=== PATIENT | female | born 1940 | race Asian ===

== ENCOUNTER 2024-02-21 10:12 | Emergency (ER) | payer MEDICARE, MEDICAID ==
[~2024-02-21] VITALS: Ht 147.3 cm; Wt 50.3 kg
[2024-02-21] MEDS ORDERED: ACETAMINOPHEN 325 MG TABLET ONE (10:58)
[2024-02-21] MEDS: ACETAMINOPHEN 325 MG TABLET PO ONE (11:06)
[2024-02-21 11:37] VITALS: BP 134/73; TEMP 98.2; O2SAT 98
== END 2024-02-21 11:39 | disposition home or self-care (01) ==
LOC: ER 10:12
DX: S42.292A Other displaced fracture of upper end of left humerus, initial encounter for closed fracture (principal); W18.39XA Other fall on same level, initial encounter; Y93.89 Activity, other specified; Y92.89 Other specified places as the place of occurrence of the external cause; Y99.8 Other external cause status
CPT/HCPCS: 73020; A4606; A4663

== ENCOUNTER 2025-04-22 15:29 | Inpatient (IN) | payer BC, MEDICAID, MEDICARE ==
[~2025-04-22] VITALS: Ht 147.3 cm; Wt 51.3 kg
[2025-04-22] MEDS ORDERED: LOSA1TAB39 PO (15:44)
[2025-04-22] MEDS ORDERED: ASPI-1420 PO (15:44)
[2025-04-22] MEDS ORDERED: LEVO50TA8 PO (15:44)
[2025-04-22] MEDS ORDERED: FAMO20TA8 PO (15:44)
[2025-04-22] MEDS ORDERED: METO-357 PO (15:44)
[2025-04-22] MEDS ORDERED: ROSU40TA23 PO (15:44)
[2025-04-22] MEDS: IV NORMAL SALINE 500 ML BAG IV ONE (16:00)
[2025-04-22 16:15] LABS: PLATELET COUNT (AUTO) 207 K/uL (179-408); RED BLOOD CELL COUNT(AUTO) 4.57 MIL/uL (3.63-4.92); RED CELL DISTRIBUTION WIDTH 13.2 % (12.3-17.7); WHITE BLOOD COUNT (AUTO) 12.4 K/uL (3.8-11.8)
[2025-04-22 16:31] LABS: ASPARTATE AMINOTRANSFERASE 111 U/L (15-37); CREATININE 2.6 mg/dL (0.6-1.3); SODIUM SERUM 140 mmol/L (136-145); TOTAL PROTEIN, SERUM 9.1 g/dL (6.4-8.2); UREA NITROGEN, BLOOD 49 mg/dL (7-18)
[2025-04-22 16:34] LABS: LACTIC ACID 2.1 mmol/L (0.4-2.0)
[2025-04-22] MEDS ORDERED: CHOL2000 PO (17:24)
[2025-04-22] MEDS ORDERED: TRIA80CR2 TP (17:25)
[2025-04-22] MEDS ORDERED: DIAZ2TAB3 PO (17:26)
[2025-04-22] MEDS ORDERED: MAGNESIUM SULFATE/D5W 200 ML ONE (18:02)
[2025-04-22] MEDS ORDERED: POTASSIUM BICARBONATE/CIT AC 25 MEQ TABLET.EFF ONE (18:02)
[2025-04-22] MEDS: MAGNESIUM SULFATE/D5W 100 ML IV SCH (18:04)
[2025-04-22] MEDS: POTASSIUM BICARBONATE/CIT AC 25 MEQ TABLET.EFF PO ONE (18:04)
[2025-04-22] MEDS ORDERED: POTASSIUM CHLORIDE 200 ML ONE (18:48)
[2025-04-22] MEDS: POTASSIUM CHLORIDE 50 ML IV SCH (18:49)
[2025-04-22 19:15] LABS: *BILIRUBIN,URIN NEGATIVE (NEGATIVE); *BLOOD, URINE 3+ (NEGATIVE); *COLOR,URINE YELLOW (YELLOW); *KETONES,URINE TRACE (NEGATIVE); *OCCULT BLOOD STOOL NEGATIVE (NEGATIVE); *PROTEIN,URINE 3+ (NEGATIVE); *UROBILINOGEN,URINE 0.2 E.U./dl (NORMAL); LEUKOCYTE ESTERASE ,URINE NEGATIVE (NEGATIVE); NITRITE, URINE NEGATIVE (NEGATIVE); UGLUCOSE NEGATIVE (NEGATIVE)
[2025-04-22 19:16] LABS: *CLARITY,URINE HAZY (CLEAR)
[2025-04-22 19:29] LABS: SQUAMOUS EPITHELIAL CELL,UR MODERATE /HPF (NONE SEEN)
[2025-04-22] MEDS ORDERED: ONDANSETRON 4 MG/2 ML VIAL ONE (19:45)
[2025-04-22] MEDS: ONDANSETRON 4 MG/2 ML VIAL IV ONE (19:49)
[2025-04-22 20:00] VITALS: BP 122/60
[2025-04-22] MEDS ORDERED: DIAZEPAM 2 MG TABLET PO PRN (21:45)
[2025-04-22] MEDS ORDERED: ENOXAPARIN SODIUM 40 MG/0.4 ML DISP.SYRIN SQ SCH (21:45)
[2025-04-22] MEDS ORDERED: TRIAMCINOLONE ACET 0.025% CREA 15 GM TUBE TP PRN (21:45)
[2025-04-22] MEDS ORDERED: ACETAMINOPHEN 325 MG TABLET PO PRN (21:45)
[2025-04-22] MEDS ORDERED: FAMOTIDINE 20 MG TABLET PO PRN ×2 (21:45→22:45)
[2025-04-22] MEDS ORDERED: ONDANSETRON 4 MG/2 ML VIAL IV PRN (21:45)
[2025-04-22 22:01] VITALS: BP 117/56; TEMP 98.9; O2SAT 96
[2025-04-22] MEDS: ATORVASTATIN 20 MG TABLET PO SCH (22:23)
[2025-04-22] MEDS: METOPROLOL SUCCINATE XL 50 MG TAB.SR.24H PO SCH (22:24)
[2025-04-22] MEDS: ENOXAPARIN SODIUM 30 MG/0.3 ML DISP.SYRIN SQ SCH (23:08)
[2025-04-23] VITALS (7 sets, daily range): BP systolic 103–138; BP diastolic 41–58; TEMP 97.4–98.8; O2SAT 92–99
[2025-04-23] MEDS: IV NS 1000 ML 1,000 ML IV PRN (00:58)
[2025-04-23] MEDS ORDERED: TRIAMCINOLONE ACET 0.025% CREA 15 GM TUBE TP PRN (06:15)
[2025-04-23] MEDS ORDERED: FAMOTIDINE 20 MG TABLET PO PRN (06:15)
[2025-04-23 06:46] LABS: PLATELET COUNT (AUTO) 190 K/uL (179-408); RED BLOOD CELL COUNT(AUTO) 3.99 MIL/uL (3.63-4.92); RED CELL DISTRIBUTION WIDTH 13.4 % (12.3-17.7); WHITE BLOOD COUNT (AUTO) 7.7 K/uL (3.8-11.8)
[2025-04-23] MEDS: LEVOTHYROXINE SODIUM 50 MCG TABLET PO SCH (07:26)
[2025-04-23 07:33] LABS: CREATININE 2.1 mg/dL (0.6-1.3); SODIUM SERUM 141 mmol/L (136-145); UREA NITROGEN, BLOOD 42 mg/dL (7-18)
[2025-04-23] MEDS: CHOLECALCIFEROL 1,000 UNIT TABLET PO SCH (08:33)
[2025-04-23] MEDS: ASPIRIN EC 81 MG TABLET.DR PO SCH (08:33)
[2025-04-23] MEDS ORDERED: POTASSIUM CHLORIDE 20 MEQ POWDER PACKET GT ONE (09:00)
[2025-04-23] MEDS: POTASSIUM CHLORIDE 20 MEQ TAB.PRT.SR PO ONE (09:12)
[2025-04-23] MEDS: POTASSIUM CHLORIDE 50 ML IV SCH (09:52)
[2025-04-23] MEDS: POTASSIUM CHLORIDE 10 MEQ, LIDOCAINE-MPF 1% 1 ML in IV DEXTROSE 5% 100 ML IV SCH (11:45)
[2025-04-24] VITALS (7 sets, daily range): BP systolic 109–171; BP diastolic 49–55; TEMP 97.8–98.6; O2SAT 97–100
[2025-04-24 07:12] LABS: PLATELET COUNT (AUTO) 173 K/uL (179-408); RED BLOOD CELL COUNT(AUTO) 3.79 MIL/uL (3.63-4.92); RED CELL DISTRIBUTION WIDTH 13.4 % (12.3-17.7); WHITE BLOOD COUNT (AUTO) 6.3 K/uL (3.8-11.8)
[2025-04-24 07:29] LABS: CREATININE 1.8 mg/dL (0.6-1.3); SODIUM SERUM 144 mmol/L (136-145); UREA NITROGEN, BLOOD 30 mg/dL (7-18)
[2025-04-24] MEDS: ENSURE ENLIVE (VAN) 240 ML LIQUID PO SCH (09:33)
[2025-04-24] MEDS: POTASSIUM CHLORIDE 10 MEQ TAB.PRT.SR PO ONE ×2 (09:45→13:37)
[2025-04-24] MEDS: POTASSIUM CHLORIDE 20 MEQ POWDER PACKET PO ONE (12:16)
[2025-04-24] MEDS: NEUTRA PHOS PACKET PO ONE (16:49)
[2025-04-25 06:49] LABS: PLATELET COUNT (AUTO) 167 K/uL (179-408); RED BLOOD CELL COUNT(AUTO) 3.64 MIL/uL (3.63-4.92); RED CELL DISTRIBUTION WIDTH 13.3 % (12.3-17.7); WHITE BLOOD COUNT (AUTO) 5.9 K/uL (3.8-11.8)
[2025-04-25 07:04] VITALS: BP 154/58; TEMP 98.6; O2SAT 98
[2025-04-25 07:12] LABS: CREATININE 1.3 mg/dL (0.6-1.3); SODIUM SERUM 144 mmol/L (136-145); UREA NITROGEN, BLOOD 22 mg/dL (7-18)
[2025-04-25] MEDS ORDERED: LEVO500T90 PO (09:42)
[2025-04-25] MEDS ORDERED: POTASSIUM CHLORIDE 50 ML IV SCH (10:00)
[2025-04-25] MEDS: POTASSIUM CHLORIDE 20 MEQ POWDER PACKET GT ONE (10:02)
[2025-04-25] MEDS: MAGNESIUM SULFATE/D5W 100 ML IV SCH (10:14)
[2025-04-25 11:40] VITALS: BP 155/59; TEMP 98; O2SAT 99
[2025-04-25] MEDS: POTASSIUM CHLORIDE 10 MEQ, LIDOCAINE-MPF 1% 1 ML in IV DEXTROSE 5% 100 ML IV SCH (13:27)
[2025-04-25 15:59] VITALS: BP 149/63; TEMP 98.2; O2SAT 100
== END 2025-04-25 20:30 | disposition home or self-care (01) | DRG 640 ==
LOC: ER 15:29 → TELE3 19:46 → MEDSURG3 04-25 14:06
PROVIDERS: ADMIT Nurse Practitioner Acute Care; ATTEND Nurse Practitioner Acute Care
DX: E86.0 Dehydration (principal); I21.A1 Myocardial infarction type 2; N17.0 Acute kidney failure with tubular necrosis; N39.0 Urinary tract infection, site not specified; E87.6 Hypokalemia; S00.03XA Contusion of scalp, initial encounter; S30.0XXA Contusion of lower back and pelvis, initial encounter; W18.39XA Other fall on same level, initial encounter; Y93.89 Activity, other specified; Y92.511 Restaurant or cafe as the place of occurrence of the external cause; F41.9 Anxiety disorder, unspecified; E03.9 Hypothyroidism, unspecified; E78.5 Hyperlipidemia, unspecified; K21.9 Gastro-esophageal reflux disease without esophagitis; T50.2X5A Adverse effect of carbonic-anhydrase inhibitors, benzothiadiazides and other diuretics, initial encounter; Y92.039 Unspecified place in apartment as the place of occurrence of the external cause; E86.1 Hypovolemia; E87.3 Alkalosis; I10 Essential (primary) hypertension; Z79.82 Long term (current) use of aspirin; K25.9 Gastric ulcer, unspecified as acute or chronic, without hemorrhage or perforation
CPT/HCPCS: 36415; 70450; 71045; 83605; 83735; 84100; 84443; 84484; 85025; 85730; 87086; 93307; A4606; A4663; G0378; J0696; J1650; J2003; J2405; J3475; J3480; J7040

== ENCOUNTER 2025-05-05 17:43 | Inpatient (IN) | payer BC, MEDICARE ==
[~2025-05-05] VITALS: Ht 147.3 cm; Wt 47.4 kg
[~2025-05-05 17:43] MED LIST: ASPI-1420 PO; CHOL2000 PO; DIAZ2TAB3 PO; FAMO20TA8 PO; LEVO500T90 PO; LEVO50TA8 PO; LOSA1TAB39 PO; METO-357 PO; ROSU40TA23 PO; TRIA80CR2 TP
[2025-05-05] MEDS ORDERED: IV NORMAL SALINE 0 ML IV ONE (18:10)
[2025-05-05] MEDS ORDERED: SWABABLE VALVE TRANSFER SET EA MC ONE (18:10)
[2025-05-05] MEDS ORDERED: IOHEXOL 350 100 ML INFUS..BTL ONE (18:10)
[2025-05-05 18:21] LABS: PLATELET COUNT (AUTO) 240 K/uL (179-408); RED BLOOD CELL COUNT(AUTO) 4.38 MIL/uL (3.63-4.92); RED CELL DISTRIBUTION WIDTH 14.0 % (12.3-17.7); WHITE BLOOD COUNT (AUTO) 6.1 K/uL (3.8-11.8)
[2025-05-05 18:30] LABS: CREATININE 2.0 mg/dL (0.6-1.3); SODIUM SERUM 139 mmol/L (136-145); UREA NITROGEN, BLOOD 44 mg/dL (7-18)
[2025-05-05 18:36] LABS: ASPARTATE AMINOTRANSFERASE 45.0 U/L (15-37); TOTAL PROTEIN, SERUM 8.3 g/dL (6.4-8.2)
[2025-05-05] MEDS ORDERED: ONDANSETRON 4 MG/2 ML VIAL ONE (18:54)
[2025-05-05] MEDS ORDERED: IV 1/2 NS + KCL 20 MEQ BAG 1,000 ML ONE (18:54)
[2025-05-05] MEDS ORDERED: ASPIRIN 81 MG TAB.CHEW ONE (18:54)
[2025-05-05] MEDS ORDERED: NITROGLYCERIN OINT 1 GM PACKET TP ONE ×2 (18:54→19:15)
[2025-05-05] MEDS: IV 1/2 NS + KCL 20 MEQ BAG 1,000 ML IV ONE (18:56)
[2025-05-05] MEDS: ASPIRIN 81 MG TAB.CHEW PO ONE (18:56)
[2025-05-05] MEDS: NITROGLYCERIN OINT 1 GM PACKET TP ONE (18:56)
[2025-05-05] MEDS: ONDANSETRON 4 MG/2 ML VIAL IV ONE (18:56)
[2025-05-05 21:30] VITALS: BP 133/58
[2025-05-05] MEDS ORDERED: ONDANSETRON 4 MG/2 ML VIAL IV PRN (21:30)
[2025-05-05] MEDS ORDERED: ACETAMINOPHEN 325 MG TABLET PO PRN (21:30)
[2025-05-05] MEDS ORDERED: TEMAZEPAM 7.5 MG CAPSULE PO PRN (21:30)
[2025-05-05 22:09] VITALS: BP 120/48; TEMP 97.8; O2SAT 98
[2025-05-05 23:46] VITALS: BP 36/47; TEMP 98; O2SAT 99
[2025-05-06 05:12] VITALS: BP 105/50; TEMP 97.9; O2SAT 99
[2025-05-06 05:29] VITALS: BP 105/50; TEMP 97.9; O2SAT 99
[2025-05-06 05:39] LABS: *BILIRUBIN,URIN NEGATIVE (NEGATIVE); *BLOOD, URINE NEGATIVE (NEGATIVE); *CLARITY,URINE CLEAR (CLEAR); *COLOR,URINE LIGHT YELLOW (YELLOW); *KETONES,URINE NEGATIVE (NEGATIVE); *PROTEIN,URINE NEGATIVE (NEGATIVE); *UROBILINOGEN,URINE 0.2 E.U./dl (NORMAL); LEUKOCYTE ESTERASE ,URINE NEGATIVE (NEGATIVE); NITRITE, URINE NEGATIVE (NEGATIVE); UGLUCOSE NEGATIVE (NEGATIVE)
[2025-05-06] MEDS: PANTOPRAZOLE SODIUM 40 MG TABLET.DR PO SCH (06:25)
[2025-05-06 07:16] LABS: PLATELET COUNT (AUTO) 214 K/uL (179-408); RED BLOOD CELL COUNT(AUTO) 3.90 MIL/uL (3.63-4.92); RED CELL DISTRIBUTION WIDTH 13.7 % (12.3-17.7); WHITE BLOOD COUNT (AUTO) 5.3 K/uL (3.8-11.8)
[2025-05-06 07:39] VITALS: BP 128/92; TEMP 97.5; O2SAT 98
[2025-05-06 07:45] LABS: ASPARTATE AMINOTRANSFERASE 38 U/L (15-37); CREATININE 1.4 mg/dL (0.6-1.3); SODIUM SERUM 140 mmol/L (136-145); TOTAL PROTEIN, SERUM 7.2 g/dL (6.4-8.2); UREA NITROGEN, BLOOD 33 mg/dL (7-18)
[2025-05-06] MEDS: ASPIRIN 81 MG TAB.CHEW PO SCH (08:35)
[2025-05-06] MEDS: POTASSIUM CHLORIDE 20 MEQ TAB.PRT.SR PO ONE (09:54)
[2025-05-06 10:52] VITALS: BP 142/61; TEMP 97.8; O2SAT 97
[2025-05-06 15:14] VITALS: BP 115/49; TEMP 97.7; O2SAT 98
[2025-05-06] MEDS: ENSURE ENLIVE (VAN) 240 ML LIQUID PO SCH (17:00)
[2025-05-06 19:00] VITALS: BP 137/56; TEMP 98.3; O2SAT 96
[2025-05-07] VITALS: BP 118/54; TEMP 98; O2SAT 94
[2025-05-07 04:00] VITALS: BP 140/62; TEMP 97.8; O2SAT 96
[2025-05-07 07:44] VITALS: BP 135/64; TEMP 97.7; O2SAT 96
[2025-05-07 10:30] VITALS: BP 150/68; TEMP 98.5; O2SAT 96
[2025-05-07] MEDS ORDERED: LORAZEPAM 1 MG TABLET PO PRN (11:00)
[2025-05-07] MEDS ORDERED: LORAZEPAM 1 MG TABLET PO ONE ×3 (11:00→11:30)
[2025-05-07] MEDS ORDERED: SWABABLE VALVE TRANSFER SET EA MC ONE (11:05)
[2025-05-07] MEDS ORDERED: IOHEXOL 350 100 ML INFUS..BTL ONE (11:05)
[2025-05-07] MEDS ORDERED: IV NORMAL SALINE 250 ML IV ONE (11:07)
[2025-05-07] MEDS: LORAZEPAM 1 MG TABLET PO ONE (11:35)
[2025-05-07 16:01] VITALS: BP 100/52; TEMP 98.3; O2SAT 96
[2025-05-07 19:45] VITALS: BP 103/55; TEMP 98.2; O2SAT 95
[2025-05-08 08:07] VITALS: BP 132/60; TEMP 98.5; O2SAT 95
[2025-05-08 10:38] LABS: CREATININE 1.2 mg/dL (0.6-1.3); SODIUM SERUM 140 mmol/L (136-145); UREA NITROGEN, BLOOD 24 mg/dL (7-18)
[2025-05-10 11:12] LABS: FOLATE (FOLIC ACID), SERUM 3.1 ng/mL (>3.0)
== END 2025-05-08 13:35 | disposition home or self-care (01) | DRG 69 ==
LOC: ER 17:43 → TELE3 20:58 → MEDSURG3 05-07 08:26 → MEDSURG1 05-08 04:00
PROVIDERS: ADMIT Internal Medicine; ATTEND Internal Medicine
DX: G45.9 Transient cerebral ischemic attack, unspecified (principal); N17.0 Acute kidney failure with tubular necrosis; I21.A1 Myocardial infarction type 2; E87.6 Hypokalemia; R20.2 Paresthesia of skin; R29.701 NIHSS score 1; E03.9 Hypothyroidism, unspecified; K21.9 Gastro-esophageal reflux disease without esophagitis; E78.5 Hyperlipidemia, unspecified; I12.9 Hypertensive chronic kidney disease with stage 1 through stage 4 chronic kidney disease, or unspecified chronic kidney disease; N18.9 Chronic kidney disease, unspecified; Z87.440 Personal history of urinary (tract) infections; F41.9 Anxiety disorder, unspecified; Z79.890 Hormone replacement therapy; Z79.82 Long term (current) use of aspirin; Z79.899 Other long term (current) drug therapy
CPT/HCPCS: 36415; 70450; 70496; 82746; 83735; 83921; 84100; 84443; 84484; 85025; 85730; A4663; G0378; J2405; J3490; Q9967

== ENCOUNTER 2025-06-01 16:04 | Inpatient (IN) | payer BC ==
[~2025-06-01] VITALS: Ht 144.8 cm; Wt 45.4 kg
[~2025-06-01 16:04] MED LIST changes: -LEVO500T90 PO; -ROSU40TA23 PO; +ROSU40TA89 PO
[2025-06-01 16:31] LABS: PLATELET COUNT (AUTO) 242 K/uL (179-408); RED BLOOD CELL COUNT(AUTO) 4.12 MIL/uL (3.63-4.92); RED CELL DISTRIBUTION WIDTH 14.0 % (12.3-17.7); WHITE BLOOD COUNT (AUTO) 7.0 K/uL (3.8-11.8)
[2025-06-01 16:39] LABS: CREATININE 2.6 mg/dL (0.6-1.3); SODIUM SERUM 140 mmol/L (136-145); UREA NITROGEN, BLOOD 43 mg/dL (7-18)
[2025-06-01 16:44] LABS: ETHANOL < 3 MG/DL (0-10)
[2025-06-01] MEDS ORDERED: CLOPIDOGREL 75 MG TABLET ONE (17:17)
[2025-06-01] MEDS: CLOPIDOGREL 75 MG TABLET PO SCH (17:18)
[2025-06-01 17:59] LABS: *BILIRUBIN,URIN NEGATIVE (NEGATIVE); *BLOOD, URINE 2+ (NEGATIVE); *CLARITY,URINE CLEAR (CLEAR); *COLOR,URINE YELLOW (YELLOW); *KETONES,URINE NEGATIVE (NEGATIVE); *PROTEIN,URINE 2+ (NEGATIVE); *UROBILINOGEN,URINE 0.2 E.U./dl (NORMAL); LEUKOCYTE ESTERASE ,URINE NEGATIVE (NEGATIVE); NITRITE, URINE NEGATIVE (NEGATIVE); UGLUCOSE NEGATIVE (NEGATIVE)
[2025-06-01 18:04] LABS: SQUAMOUS EPITHELIAL CELL,UR FEW /HPF (NONE SEEN)
[2025-06-01 18:11] LABS: *AMPHETAMINE, URINE NEGATIVE (NEGATIVE); *BARBITURATE, URINE NEGATIVE (NEGATIVE); *BENZODIAZEPINE, URINE NEGATIVE (NEGATIVE); *CANNABINOID, URINE NEGATIVE (NEGATIVE); *COCCAINE, URINE NEGATIVE (NEGATIVE); *OPIATE, URINE NEGATIVE (NEGATIVE); *PHENCYCLIDINE SCREEN,URINE NEGATIVE (NEGATIVE); FENTANYL, URINE NEGATIVE (NEGATIVE)
[2025-06-01] MEDS ORDERED: POTASSIUM CHLORIDE 20 MEQ POWDER PACKET ONE (18:16)
[2025-06-01] MEDS ORDERED: POTASSIUM CHLORIDE 20 MEQ TAB.PRT.SR ONE (18:20)
[2025-06-01] MEDS: POTASSIUM CHLORIDE 20 MEQ TAB.PRT.SR PO ONE (18:36)
[2025-06-01 19:40] VITALS: BP 134/61; TEMP 98.7; O2SAT 97
[2025-06-01 21:00] VITALS: BP 128/62
[2025-06-01] MEDS ORDERED: DIAZEPAM 2 MG TABLET PO PRN (21:00)
[2025-06-01] MEDS ORDERED: TRIAMCINOLONE ACET 0.025% CREA 15 GM TUBE TP PRN (21:00)
[2025-06-01] MEDS: IV 1/2NS 1000 ML 1,000 ML IV SCH (22:19)
[2025-06-01] MEDS: METOPROLOL SUCCINATE XL 50 MG TAB.SR.24H PO SCH (22:23)
[2025-06-01] MEDS: ENOXAPARIN SODIUM 30 MG/0.3 ML DISP.SYRIN SQ SCH (22:26)
[2025-06-02 00:42] VITALS: BP 103/60; TEMP 98.8; O2SAT 95
[2025-06-02 03:58] VITALS: BP 110/50; TEMP 98; O2SAT 100
[2025-06-02] MEDS ORDERED: DIAZEPAM 2 MG TABLET PO PRN (05:30)
[2025-06-02] MEDS: PANTOPRAZOLE SODIUM 40 MG TABLET.DR PO SCH (06:15)
[2025-06-02] MEDS: LEVOTHYROXINE SODIUM 50 MCG TABLET PO SCH (06:18)
[2025-06-02 07:35] VITALS: BP 120/50; TEMP 98.1; O2SAT 99
[2025-06-02 08:28] LABS: PLATELET COUNT (AUTO) 199 K/uL (179-408); RED BLOOD CELL COUNT(AUTO) 3.67 MIL/uL (3.63-4.92); RED CELL DISTRIBUTION WIDTH 13.9 % (12.3-17.7); WHITE BLOOD COUNT (AUTO) 5.5 K/uL (3.8-11.8)
[2025-06-02 08:37] LABS: CREATININE 2.3 mg/dL (0.6-1.3); SODIUM SERUM 139 mmol/L (136-145); UREA NITROGEN, BLOOD 35 mg/dL (7-18)
[2025-06-02] MEDS: ASPIRIN EC 81 MG TABLET.DR PO SCH (08:59)
[2025-06-02] MEDS: CHOLECALCIFEROL 1,000 UNIT TABLET PO SCH (09:02)
[2025-06-02 11:39] VITALS: BP 127/55; TEMP 98.3; O2SAT 95
[2025-06-02] MEDS: POTASSIUM CHLORIDE 20 MEQ TAB.PRT.SR PO ONE (12:10)
[2025-06-02 15:39] VITALS: BP 116/54; TEMP 97.9; O2SAT 98
[2025-06-02 19:00] VITALS: BP 116/50; TEMP 97.5; O2SAT 98
[2025-06-02] MEDS ORDERED: HYDROCHLOROTHIAZIDE 25 MG TABLET PO SCH (21:00)
[2025-06-02] MEDS ORDERED: LOSARTAN POTASSIUM 50 MG TABLET PO SCH (21:00)
[2025-06-02] MEDS: ATORVASTATIN 40 MG TABLET PO SCH (21:02)
[2025-06-03] VITALS: BP 117/42; TEMP 98.5; O2SAT 97
[2025-06-03 04:00] VITALS: BP 103/53; TEMP 98.7; O2SAT 100
[2025-06-03 07:15] VITALS: BP 120/54; TEMP 98.5; O2SAT 98
[2025-06-03 07:18] LABS: PLATELET COUNT (AUTO) 210 K/uL (179-408); RED BLOOD CELL COUNT(AUTO) 3.78 MIL/uL (3.63-4.92); RED CELL DISTRIBUTION WIDTH 13.9 % (12.3-17.7); WHITE BLOOD COUNT (AUTO) 5.4 K/uL (3.8-11.8)
[2025-06-03 07:34] LABS: ASPARTATE AMINOTRANSFERASE 30 U/L (15-37); CREATININE 2.1 mg/dL (0.6-1.3); SODIUM SERUM 139 mmol/L (136-145); TOTAL PROTEIN, SERUM 7.6 g/dL (6.4-8.2); UREA NITROGEN, BLOOD 33 mg/dL (7-18)
[2025-06-03] MEDS: MIRALAX 17 GM POWD.PACK PO ONE (08:15)
[2025-06-03 10:34] VITALS: BP 95/47; TEMP 97.9; O2SAT 100
[2025-06-03] MEDS: POTASSIUM CHLORIDE 10 MEQ TAB.PRT.SR PO ONE (11:12)
[2025-06-03] MEDS ORDERED: CLOP75TA33 PO (14:07)
[2025-06-03] MEDS ORDERED: ATORVASTATIN 40 MG TABLET PO SCH (21:00)
[2025-06-04] MEDS ORDERED: MIRALAX 17 GM POWD.PACK PO PRN (07:15)
== END 2025-06-03 14:35 | disposition home or self-care (01) | DRG 69 ==
LOC: ER 16:25 → TELE3 21:18 → MEDSURG3 06-03 09:30
PROVIDERS: ADMIT Student in an Organized Health Care Education/Training Program; ATTEND Student in an Organized Health Care Education/Training Program
DX: G45.9 Transient cerebral ischemic attack, unspecified (principal); N17.0 Acute kidney failure with tubular necrosis; E03.9 Hypothyroidism, unspecified; E05.90 Thyrotoxicosis, unspecified without thyrotoxic crisis or storm; I10 Essential (primary) hypertension; I69.398 Other sequelae of cerebral infarction; D68.59 Other primary thrombophilia; Z74.09 Other reduced mobility; E78.5 Hyperlipidemia, unspecified; Z79.890 Hormone replacement therapy; Z79.899 Other long term (current) drug therapy; R20.2 Paresthesia of skin; E87.6 Hypokalemia; Z79.82 Long term (current) use of aspirin; Z98.890 Other specified postprocedural states
CPT/HCPCS: 36415; 70450; 71045; 76770; 83735; 84100; 84443; 85025; 85730; 93307; A4606; A4663; G0378; G0480; J1650

== ENCOUNTER 2025-06-25 08:54 | Inpatient (IN) | payer BC ==
[~2025-06-25] VITALS: Ht 147.3 cm; Wt 45.4 kg
[~2025-06-25 08:54] MED LIST changes: +CLOP75TA33 PO; -LOSA1TAB39 PO
[2025-06-25 09:25] LABS: CREATININE 1.6 mg/dL (0.6-1.3); SODIUM SERUM 145 mmol/L (136-145); UREA NITROGEN, BLOOD 14 mg/dL (7-18)
[2025-06-25 10:00] VITALS: BP 141/54
[2025-06-25] MEDS: IV NS 1000 ML 1,000 ML IV ONE (10:00)
[2025-06-25] MEDS: POTASSIUM CHLORIDE 10 MEQ, LIDOCAINE-MPF 1% 1 ML in IV DEXTROSE 5% 100 ML IV SCH (10:30)
[2025-06-25] MEDS ORDERED: ONDA-104 PO (12:34)
[2025-06-25 12:46] VITALS: BP 122/44; TEMP 97.8; O2SAT 96
[2025-06-25 16:00] VITALS: BP 103/39; TEMP 98.2; O2SAT 97
[2025-06-25 20:09] VITALS: BP 91/35; TEMP 98.4; O2SAT 100
[2025-06-25] MEDS: ATORVASTATIN 40 MG TABLET PO SCH (20:48)
[2025-06-25] MEDS: METOPROLOL SUCCINATE XL 50 MG TAB.SR.24H PO SCH (20:49)
[2025-06-26 00:22] VITALS: BP 107/34; TEMP 98.7; O2SAT 99
[2025-06-26 04:34] VITALS: BP 111/40; TEMP 97.4; O2SAT 98
[2025-06-26] MEDS: LEVOTHYROXINE SODIUM 50 MCG TABLET PO SCH (06:54)
[2025-06-26 07:55] LABS: PLATELET COUNT (AUTO) 171 K/uL (179-408); RED BLOOD CELL COUNT(AUTO) 3.09 MIL/uL (3.63-4.92); RED CELL DISTRIBUTION WIDTH 14.7 % (12.3-17.7); WHITE BLOOD COUNT (AUTO) 4.6 K/uL (3.8-11.8)
[2025-06-26 08:09] LABS: CREATININE 1.4 mg/dL (0.6-1.3); SODIUM SERUM 144 mmol/L (136-145); UREA NITROGEN, BLOOD 12 mg/dL (7-18)
[2025-06-26 08:17] VITALS: BP 123/46; TEMP 98.1; O2SAT 97
[2025-06-26] MEDS ORDERED: ASPIRIN EC 81 MG TABLET.DR PO SCH ×2 (09:00→21:00)
[2025-06-26] MEDS: POTASSIUM CHLORIDE 10 MEQ TAB.PRT.SR PO SCH (09:22)
[2025-06-26] MEDS: CHOLECALCIFEROL 1,000 UNIT TABLET PO SCH (09:23)
[2025-06-26] MEDS: CLOPIDOGREL 75 MG TABLET PO SCH (09:23)
[2025-06-26] MEDS ORDERED: POTASSIUM CHLORIDE 10 MEQ TAB.PRT.SR PO ONE ×2 (11:00→16:00)
[2025-06-26] MEDS ORDERED: POTASSIUM CHLORIDE 20 MEQ POWDER PACKET PO ONE ×2 (11:19→11:29)
[2025-06-26] MEDS: POTASSIUM CHLORIDE 10 MEQ TAB.PRT.SR PO ONE (11:43)
[2025-06-26 11:54] VITALS: BP 132/43; TEMP 97.7; O2SAT 96
[2025-06-26 16:10] VITALS: BP 105/45; TEMP 97.8; O2SAT 95
[2025-06-26] MEDS: NEUTRA PHOS PACKET PO ONE (16:56)
[2025-06-26] MEDS: POTASSIUM CHLORIDE 20 MEQ TAB.PRT.SR PO ONE ×2 (16:56→18:18)
[2025-06-26] MEDS ORDERED: POTA-204 PO (18:19)
== END 2025-06-26 18:45 | disposition home or self-care (01) | DRG 641 ==
LOC: ER 08:54 → TELE3 11:48
PROVIDERS: ADMIT Student in an Organized Health Care Education/Training Program; ATTEND Student in an Organized Health Care Education/Training Program
DX: E87.6 Hypokalemia (principal); D68.59 Other primary thrombophilia; Z79.02 Long term (current) use of antithrombotics/antiplatelets; E03.9 Hypothyroidism, unspecified; N18.32 Chronic kidney disease, stage 3b; I69.398 Other sequelae of cerebral infarction; E78.5 Hyperlipidemia, unspecified; Z74.09 Other reduced mobility; R20.0 Anesthesia of skin; Z79.82 Long term (current) use of aspirin; Z79.890 Hormone replacement therapy; R53.1 Weakness
CPT/HCPCS: 36415; 83735; 83921; 84100; 84132; 84443; 85025; A4606; A4663; G0378; J2003; J3480; J7040